=== PATIENT | male | born 1985 | race African-American/Black ===

== ENCOUNTER 2020-08-30 08:54 | Inpatient (IN) | payer MEDICAID, SELFPAY ==
[~2020-08-30] VITALS: Ht 177.8 cm; Wt 71.7 kg
[2020-08-30 09:00] VITALS: BP 120/73
[2020-08-30] MEDS ORDERED: HALOPERIDOL IM 5 MG/ML VIAL IM ONE (09:00)
[2020-08-30] MEDS ORDERED: LORazepam 2 MG/ML VIAL IM/IVP ONE (09:00)
[2020-08-30] MEDS ORDERED: NACL 0.9% 1,000 ML IV ONE (09:00)
[2020-08-30] MEDS ORDERED: diphenhydrAMINE 50 MG/ML VIAL IM ONE (09:00)
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
--- NOTE | 2020-08-30 09:05 | NUR ---
TRANSFERED TO BED 07
--- NOTE | 2020-08-30 09:54 | NUR ---
STRAIGHT CATH PT AND RECEIVED AN OUTPUT OF 200ML OF CLEAR YELLOW URINE.
--- NOTE | 2020-08-30 09:58 | NUR ---
COVID ANTIGEN SWAB COLLECTED AND GIVEN TO PHLEB TECH.
[2020-08-30 10:13] LABS: BASOPHILS # (AUTO) 0.1 K/uL (0.00-0.22); BASOPHILS % (AUTO) 0.8 % (0.0-2.0); EOSINOPHILS # (AUTO) 0.3 K/uL (0-0.4); EOSINOPHILS % (AUTO) 4.3 % (0.0-4.0); HEMATOCRIT 33.9 % (36-52); HEMOGLOBIN 11.3 g/dL (12.0-18.0); LYMPHOCYTES # (AUTO) 1.6 K/uL (2.0-11.5); LYMPHOCYTES % (AUTO) 20.6 % (20.5-51.1); MEAN CORPUSCULAR HEMOGLOBIN 25 pg (27-31); MEAN CORPUSCULAR HGB CONC 33 g/dL (33-37); MEAN CORPUSCULAR VOLUME 74.2 fL (80-94); MONOCYTES # (AUTO) 0.7 K/uL (0.8-1.0); MONOCYTES % (AUTO) 8.7 % (1.7-9.3); NEUTROPHILS # (AUTO) 5.2 K/uL (1.8-7.7); NEUTROPHILS % (AUTO) 65.6 % (42.2-75.2); PLATELET COUNT (AUTO) 338 K/uL (140-450); RED BLOOD CELL COUNT(AUTO) 4.57 MIL/uL (4.20-6.10); RED CELL DISTRIBUTION WIDTH 17.9 % (11.6-13.7); WHITE BLOOD COUNT (AUTO) 7.9 K/uL (4.8-10.8)
[2020-08-30 10:39] LABS: ALBUMIN 3.7 g/dL (3.4-5.0); ANION GAP 12.9 (8-16); ASPARTATE AMINOTRANSFERASE 58 U/L (15-37); CARBON DIOXIDE 26.7 mmol/L (21-32); CHLORIDE 104 mmol/L (98-107); CREATININE 0.8 mg/dL (0.6-1.3); GFR ARICAN-AMERICAN 142 mL/min (>90); GLUCOSE 96 mg/dL (74-106); POTASSIUM 3.6 mmol/L (3.5-5.1); SODIUM SERUM 140 mmol/L (136-145); TOTAL BILIRUBIN 0.5 mg/dL (0.0-1.0); UREA NITROGEN, BLOOD 22 mg/dL (7-18)
[2020-08-30 10:40] LABS: SALICYLATE < 2.8 mg/dL (2.8-20.0)
[2020-08-30 10:41] LABS: ACETAMINOPHEN < 0.5 ug/ml (10-30)
[2020-08-30 10:57] LABS: CANNABINOID, URINE POSITIVE ng/mL (NEG <=50); OPIATE, URINE NEGATIVE ng/mL (NEG <=2000); PHENCYCLIDINE SCREEN,URINE NEGATIVE ng/mL (NEG <=25)
[2020-08-30 10:58] LABS: BARBITURATE, URINE NEGATIVE ng/ml (NEG <=200); BENZODIAZEPINE, URINE NEGATIVE ng/mL (NEG <=200); COCAINE, URINE NEGATIVE ng/mL (NEG <=300)
--- NOTE | 2020-08-30 12:51 | NUR ---
PT SCREAMING AND BEING AGITATED, GOKUL LIMA MADE AWARE.
[2020-08-30] MEDS ORDERED: LORazepam 2 MG/ML VIAL IVP ONE (12:55)
--- NOTE | 2020-08-30 13:15 | NUR ---
PT SHOUTING AND GETTING AGITATED. NEW ORDERS ADDED: ATIVAN 2MG IVP.
--- NOTE | 2020-08-30 13:20 | NUR ---
PT IS SLEEPING COMFORTABLY IN BED. NO DISTRESS NOTED.
--- NOTE | 2020-08-30 15:07 | NUR ---
PT IS CALM, SLEEPING COMFORTABLY. VSS.
--- NOTE | 2020-08-30 17:20 | NUR ---
PT ARRIVED ON UNIT AT THIS TIME FROM ER VIA GURNEY. PT REMAINED IN POSITION THROUGHOUT HIS TRANSFER ONTO UNIT BED. PT DOES NOT RESPOND TO QUESTIONS AND GETS QUICKLY AGITATED WHEN TOUCHED OR MOVED. PT IN STABLE CONDITION, NO DISTRESS NOTED, RESPIRATIONS EVEN AND UNLABORED ON ROOM AIR. PT COMBATIVE AND KICKING WHILE TRYING TO TAKE VITAL SIGNS. VITALS UPON ADMISSION BP 132/70, R 16, P 62, O2 SAT 100%, TEMP 98. IV SITE PATENT AND ASYMPTOMATIC IN R FA 20G. REGULAR DIET. STANDARD ISOLATION. MRSA SWAB DONE. PT OFFERED DINNER. SAFETY MEASURES IN PLACE, BED IN LOW POSITION. WILL CONTINUE TO MONITOR.
--- NOTE | 2020-08-30 17:20 | NUR ---
Patient will be admitted to care of dr. tejeda. Admited to m/s. Will go to room 109b. Belongings list completed. Report to hillary magdaleno.
--- NOTE | 2020-08-30 20:39 | NUR ---
CHECKED ON PT AND PT IS SLEEPING. VISIBLY CHEST RISE NOTED. PT IS ON LEFT LATERAL POSITION. NO SIGNS OF DISTRESS NOTED. WILL CONTINUE TO MONITOR.
--- NOTE | 2020-08-30 22:20 | NUR ---
PT WOKE UP TO ASK FOR FOOD AND BLANKET. NURSE EXPLAINED TO THE PT THAT HE HAS FOOD AT THE BEDSIDE. A BLANKET WAS PROVIDED. PT IS SITTING UP AND EATING IN BED. NO SIGNS OF DISTRESS NOTED. WILL CONTINUE TO MONITOR.
--- NOTE | 2020-08-31 00:01 | NUR ---
PT REFUSED VITALS ASSESSMENT. PT IS IN STABLE CONDITION.
[2020-08-31] MEDS ORDERED: ONDANSETRON 4 MG/2 ML VIAL IM/IVP PRN (00:20)
[2020-08-31] MEDS ORDERED: DOCUSATE SODIUM 100 MG GELCAP PO PRN (00:20)
[2020-08-31] MEDS ORDERED: POTASSIUM CHLORIDE 10 MEQ TABER PO PRN (00:20)
[2020-08-31] MEDS ORDERED: ACETAMINOPHEN 325 MG TAB PO PRN (00:20)
[2020-08-31] MEDS ORDERED: HYDROcodone/APAP 7.5/325 MG 1 TAB PO PRN (00:20)
[2020-08-31 00:52] LABS: CHOL/HDL RATIO 2.7 (1-4.5); FREE T4 (FREE THYROXINE) 1.07 ng/dL (0.76-1.46); MAGNESIUM 1.8 mg/dL (1.8-2.4); PHOSPHORUS 3.2 mg/dL (2.5-4.9); PROTHROMBIN TIME 9.3 secs (10.8-13.4); THYROID STIMULATING HORMONE 0.63 uIU/mL (0.34-3.74)
--- NOTE | 2020-08-31 03:00 | NUR ---
PT IS SLEEPING. VISIBLE CHEST RISE NOTED.
--- NOTE | 2020-08-31 05:05 | NUR ---
PT WOKE UP AND ASKED FOR FOOD AND A SANDWICH AND SODA WAS GIVEN. ASSESSED FOR ANY KNOWN ALLERGIES AND PT STATED THAT HE DOESN'T HAVE ANY KNOWN ALLERGIES. PT INQUIRED ABOUT LEAVING. EDUCATION WAS GIVEN THAT THE MD WILL NEED TO SEE HIM AND MAKE ASSESSMENT ABOUT THIS HOSPITALIZATION. PT IS IN STABLE CONDITION.
--- NOTE | 2020-08-31 05:57 | NUR ---
PT ASKED FOR FLUIDS AND WAS GIVEN TWO JUICES. PT IS AWAKE SO A/O ASSESSMENT WAS ATTEMPTED. PT WAS NONVERBAL WITH EYE CLOSED. WHEN ASKED IF THE PT KNOWS WHY HE WAS BROUGHT TO THE HOSPITAL, PT WAS NONVERBAL WITH EYE CLOSED. TESS POE, IS AT THE BEDSIDE. PT IS LYING SUPINE, BREATHING SPONTANEOUS. THERE IS NO SIGNS OF DISTRESS AT THIS TIME. PT IS NON-COOPERATIVE EVIDENCE BY HIS BEHAVIOR BY NOT ANSWERING QUESTIONS. NO ANGER OR VIOLENT BEHAVIORS NOTED AT THIS TIME. WILL CONTINUE TO MONITOR.
--- NOTE | 2020-08-31 07:16 | NUR ---
RECEIVED REPORT FROM NIGHT NURSE FOR CONTINUITY OF CARE, PT IS STABLE, PT ASLEEP, PT HAS RIGHT FA 20G SALINE LOCK, PT AMBULATORY, SKIN INTACT, BED IN LOW POSITION, SAFETY MEASURES IN PLACE, WILL CONTINUE TO MONITOR
[2020-08-31 08:00] VITALS: BP 110/82
--- NOTE | 2020-08-31 08:48 | NUR ---
PATIENT HAS BEEN SCREENED AND CATEGORIZED LOW NUTRITION RISK. PATIENT WILL BE SEEN WITHIN 7 DAYS OF ADMISSION. 09/06/[address]
--- NOTE | 2020-08-31 09:40 | NUR ---
PT REFUSING MORNING ASSESSMENT, PT IS STABLE, NO SIGNS OF DISTRESS NOTED, RESPIRATIONS ARE EVEN AND UNLABORED ON ROOM AIR, WILL CONTINUE TO MONITOR.
--- NOTE | 2020-08-31 11:29 | NUR ---
PT SLEEPING IN BED, NO SIGNS OF DISTRESS NOTED, RESPIRATIONS ARE EVEN AND UNLABORED ON ROOM AIR, PT IS STABLE, 1:1 SITTER OUTSIDE ROOM, WILL CONTINUE TO MONITOR.
--- NOTE | 2020-08-31 12:35 | NUR ---
PT VOMITED X1. PT DENIES NAUSEA. ENCOURAGED TO SIT UP WHEN EATING. PT NEEDS REINFORCEMENT. NO SIGNS OF ASPIRATION NOTED. NOT IN RESPIRATORY DISTRESS. SAFETY MEASURES INITIATED. FALL PRECAUTION IMPLEMENTED. 1:1 SITTER AT BEDSIDE.
--- NOTE | 2020-08-31 15:10 | NUR ---
PROVIDED PT IN BETWEEN MEALS. ENCOURAGED TO INCREASE FLUID. STILL ON 1:1 SITTER. NO SIGNS OF AGITATIONS. ALL NEEDS ATTENDED.
--- NOTE | 2020-08-31 15:56 | NUR ---
SOCIAL WORK NOTE: Patient's Orientation Person Information Provided By PATIENT Comments SW MET WITH PATIENT AT BEDSIDE. PATIENT WAS AGITATED AND WAS NOT ORIENTED TO SITUATION, TIME, OR PLACE. PATIENT REFUSED TO COMPLETE ASSESSMENT WITH SW. PATIENT WAS UNCOOPERATIVE AND YELLED OBSCENITIES TO SW. SW LEFT HOMELESS RESOURCES, SUBSTANCE ABUSE RESOURCES, AND FOOD PANTRY RESOURCES AT BEDSIDE. Healthcare Power of Specialty Person No Does Patient Have a POLST No Factors/Needs Psych Placement/Referral Discharge Plan Comments TENTATIVE DISCHARGE PLAN IS FOR PATIENT TO BE DISCHARGED TO PSYCHIATRIC FACILITY. DC Plan Status Initiated Addendum: 09/04/20 at 1314 by Armani BENOIT MIKKI LEFT INCAPACITY DECLARATION WITH CHARGE NURSE ANGEL FOR DR. ALFARO TO SIGN REGARDING [facility] APPLICATION.
[2020-08-31 16:00] VITALS: BP 130/85
--- NOTE | 2020-08-31 17:09 | NUR ---
[facility] has only received patient's facesheet and 5150 hold. Need rest of packet for placement.
--- NOTE | 2020-08-31 19:10 | NUR ---
ENDORSE PT TO NIGHT NURSE FOR CONTINUITY OF CARE, PT IS STABLE
--- NOTE | 2020-08-31 19:15 | NUR ---
Call Center highway engineer is still aware of patient and is pending complete packet to begin working on bed placement.
--- NOTE | 2020-08-31 19:20 | NUR ---
RECEIVED BEDSIDE REPORT FROM DAY SHIFT NURSE. PATIENT IS SLEEPING RESPIRATION EVEN UNLABORED ON ROOM AIR. NO DISTRESS NOTED. SKIN IS WARM AND DRY. PLAN OF CARE WAS DISCUSSED. ALL SAFETY MEASURES IN PLACE. BED IS AT LOW POSITION. WILL CONTINUE TO MONITOR.
[2020-08-31] MEDS: OLANZapine 5 MG TAB PO SCH (21:00)
--- NOTE | 2020-08-31 21:00 | NUR ---
ALL SCHEDULED MEDS WERE GIVEN PER ORDER. WILL CONTINUE TO MONITOR.
--- NOTE | 2020-08-31 22:32 | NUR ---
PATIENT IS SCREAMING ASKING FOR FOOD. PROVIDED SANDWICH AND JUICE. WILL CONTINUE TO MONITOR.
[2020-09-01] VITALS: BP 112/63
--- NOTE | 2020-09-01 00:34 | NUR ---
VITALS WERE TAKEN. PATIENT IN STABLE CONDITION. NO DISTRESS NOTED. WILL CONTINUE TO MONITOR. SITTER AT BEDSIDE
--- NOTE | 2020-09-01 04:00 | NUR ---
CHECKED PATIENT. PATIENT SLEEPING RESPIRATION EVEN UNLABORED ON ROOM AIR. SITTER AT BEDSIDE
--- NOTE | 2020-09-01 05:45 | NUR ---
PT REFUSED BLOOD DRAWN. EDUCATED THE RISK AND BENEFITS PATIENT REFUSED X2.
--- NOTE | 2020-09-01 07:11 | NUR ---
ENDORSED PATIENT TO DAY SHIFT NURSE FOR CONTINUITY OF CARE
--- NOTE | 2020-09-01 07:12 | NUR ---
RECEIVED REPORT FROM PM RNRENETTA. PT IS HOMELESS. CC: SI, GRAVELY DISABLE. DX: SI, GRAVELY DISABLE. HX: UNABLE TO COLLECT PMHX, +AMPHETAMINES, + CANNABINOIDS. NKA. PT IS ON /50 WITH 1:1 SITTER. IV: LT FA 20G SL. PT IS ON A REGULAR DIET. SKIN IS INTACT. PLAN: PLACEMENT.
[2020-09-01 08:00] VITALS: BP 111/54
--- NOTE | 2020-09-01 08:18 | NUR ---
Change of shift reoport given. Have only received minimal amount of information for intake regarding patient. Please fax intake with complete information to [phone] to complete the process for assistance with bed placement.
[2020-09-01] MEDS: OLANZapine 5 MG TAB PO SCH (08:57)
--- NOTE | 2020-09-01 09:00 | NUR ---
PASSED MEDICATIONS TO PT. PT WAS ASLEEP IN BED. RESPIRATIONS ARE EVEN AND UNLABORED. NO SIGNS OF DISTRESS. NO COMPLAINTS OF: PAIN, NAUSEA, CHEST PAIN, OR SOB. PT RETURNED BACK TO SLEEP.
--- NOTE | 2020-09-01 10:00 | NUR ---
Per Ronal Charge nurse , will need transfer order in the AM , at this time Call center will continue to observe for placement assistance after orders are done by .
--- NOTE | 2020-09-01 10:15 | NUR ---
PT WOKE UP, AGITATED. STARTED YELLING, INCOHERENT SENTENCES. SITTER BROUGHT FOOD TO PT. PT IS NOW PACING THE ROOM. SPECIAL PROGRAMS DIRECTOR AWARE THAT PT IS AGITATED.
[2020-09-01] MEDS ORDERED: diphenhydrAMINE 50 MG/ML VIAL IM SCH (12:45)
[2020-09-01] MEDS ORDERED: LORazepam 2 MG/ML VIAL IM/IVP PRN (12:45)
[2020-09-01] MEDS ORDERED: HALOPERIDOL IM 5 MG/ML VIAL IM SCH (12:45)
--- NOTE | 2020-09-01 13:19 | NUR ---
COMPLETED ROUND. PT IS SLEEPING IN BED. VISIBLE RISE AND FALL OF CHEST. RESPIRATIONS ARE EVEN AND UNLABORED. NO SIGNS OF DISTRESS.
--- NOTE | 2020-09-01 14:45 | NUR ---
COMPLETED ROUND. PT IS LAYING DOWN IN BED. NO SIGNS OF DISTRESS. VISIBLE RISE AND FALL OF CHEST. RESPIRATIONS ARE EVEN AND UNLABORED. NO COMPLAINTS OF: PAIN, CHEST PAIN, SHORTNESS OF BREATH, OR NAUSEA.
[2020-09-01 16:00] VITALS: BP 111/54
--- NOTE | 2020-09-01 16:00 | NUR ---
PT IS RESTING IN BED. RESPIRATIONS ARE EVEN AND UNLABORED. NO SIGNS OF DISTRESS.
--- NOTE | 2020-09-01 19:10 | NUR ---
TRANSFER OF CARE TO PM RNANA PAULA. PT IS RESTING IN BED. RESPIRATIONS ARE EVEN AND UNLABORED. NO SIGNS OF DISTRESS.
--- NOTE | 2020-09-01 19:15 | NUR ---
RECEIVED PT IN STABLE CONDITION FROM AM NURSE. MED SURG PT. WITH 1:1 SITTER IN ATTENDANCE. NO C/O ANY DISCOMFORT NOR PAIN NOTED. BED ON LOW POSITION. SIDE RAILS UP X2. WILL CONTINUE TO CLOSELY MONITOR . PT REFUSED LAB DRAW THIS AM. WILL REORDER FOR TOMORROW.
--- NOTE | 2020-09-01 21:09 | NUR ---
PT YELLING AND VERY AGITATED. GIVEN SOME APPLE JUICE AND ATIVAN 1MG IM ONCE PER MD ORDER. WILL CONTINUE TO MONITOR.
--- NOTE | 2020-09-01 23:00 | NUR ---
CHECKED ON PT. SLEEPING WELL AT THIS TIME. NO S/S OF ANY DISCOMFORT.
[2020-09-02] VITALS: BP 112/56
--- NOTE | 2020-09-02 01:00 | NUR ---
MADE ROUNDS. PT SLEEPING. NO S/S OF ANY DISCOMFORT NOTED. WILL CONTINUE TO MONITOR.
[2020-09-02] MEDS: diphenhydrAMINE 50 MG/ML VIAL IM PRN (01:41)
--- NOTE | 2020-09-02 01:41 | NUR ---
PT WOKE UP AND AGITATED. BENADRYL 50 MG IM GIVEN PRN ORDER. WILL CONTINUE TO MONITOR.
[2020-09-02] MEDS: HALOPERIDOL IM 5 MG/ML VIAL IM PRN (04:40)
--- NOTE | 2020-09-02 04:40 | NUR ---
PT AGITATED . HALDOL 5MG IM GIVEN. PROVIDED WITH SOME JUICE. WILL CONTINUE TO MONITOR.
[2020-09-02 06:05] LABS: BASOPHILS # (AUTO) 0.1 K/uL (0.00-0.22); BASOPHILS % (AUTO) 0.8 % (0.0-2.0); EOSINOPHILS # (AUTO) 0.3 K/uL (0-0.4); EOSINOPHILS % (AUTO) 4.2 % (0.0-4.0); HEMATOCRIT 35.3 % (36-52); HEMOGLOBIN 11.6 g/dL (12.0-18.0); LYMPHOCYTES # (AUTO) 1.6 K/uL (2.0-11.5); MEAN CORPUSCULAR HEMOGLOBIN 24 pg (27-31); MEAN CORPUSCULAR HGB CONC 33 g/dL (33-37); MEAN CORPUSCULAR VOLUME 74.4 fL (80-94); MONOCYTES # (AUTO) 0.7 K/uL (0.8-1.0); MONOCYTES % (AUTO) 9.4 % (1.7-9.3); NEUTROPHILS # (AUTO) 5.2 K/uL (1.8-7.7); NEUTROPHILS % (AUTO) 65.6 % (42.2-75.2); PLATELET COUNT (AUTO) 333 K/uL (140-450); RED BLOOD CELL COUNT(AUTO) 4.74 MIL/uL (4.20-6.10); RED CELL DISTRIBUTION WIDTH 17.9 % (11.6-13.7); WHITE BLOOD COUNT (AUTO) 7.9 K/uL (4.8-10.8)
[2020-09-02 06:19] LABS: ANION GAP 10.2 (8-16); CREATININE 0.8 mg/dL (0.6-1.3); POTASSIUM 4.2 mmol/L (3.5-5.1)
[2020-09-02 06:24] LABS: MAGNESIUM 1.7 mg/dL (1.8-2.4); PHOSPHORUS 3.3 mg/dL (2.5-4.9)
--- NOTE | 2020-09-02 07:30 | NUR ---
RECEIVED REPORT FROM CHAIN MAKER RN FOR CONTINUITY OF CARE. PATIENT RESTING IN BED, ASLEEP, VISIBLE CHEST RISE AND FALLS. 1:1 SITTER. NO ACUTE DISTRESS NOTED. SAFETY MEASURES IN PLACE, WILL CONTINUE TO MONITOR.
--- NOTE | 2020-09-02 07:30 | NUR ---
PT STILL WITH 1;1 SITTER. ENDORSED PT IN STABLE CONDITION TO AM NURSE.
--- NOTE | 2020-09-02 08:00 | NUR ---
PATIENT REFUSED TO BE CHECKED ON VITAL SIGNS. EXPLAINED TO THE PATIENT THAT REASON TO HAVE VITAL SIGNS CHECKED, BUT INSIST REFUSED. WILL INFORM .
[2020-09-02] MEDS: OLANZapine 5 MG TAB PO SCH ×2 (08:23→21:29)
--- NOTE | 2020-09-02 08:23 | NUR ---
SCHEDULED MORNING MEDICATION GIVEN. PATIENT DENIES PAIN OR DISCOMFORT. PATIENT REMAIN CALM AT THIS TIME. SAFETY MEASURES IN PLACE, 1:1 SITTER. WILL CONTINUE TO MONITOR.
--- NOTE | 2020-09-02 08:42 | NUR ---
[facility] working on placement at this time.
--- NOTE | 2020-09-02 11:12 | NUR ---
PATIENT STAYED IN HIS BED, RIGHT LATERAL POSITION, HEAD COVERED WITH BLANKET. NO ACUTE DISTRESS NOTED AT THIS TIME, 1:1 SITTER. WILL CONTINUE TO MONITOR.
--- NOTE | 2020-09-02 15:02 | NUR ---
PATIENT SLEEPING IN BED, 1:1 SITTER, NO ACUTE DISTRESS NOTED. WILL CONTINUE TO MONITOR.
--- NOTE | 2020-09-02 15:50 | NUR ---
PATIENT IS AGITATED AND YELLING WANT TO GO HOME. ASKED WHERE HE LIVES, HE STATED THAT HE LIVES IN [facility]. INFORMED DR. ALFARO. PATIENT IS STILL 5150 HOLD. HE WILL PERSONAL CHECK THE PATIENT LATER TODAY. OFFERED PATIENT HALDOL, PATIENT REFUSED, OFFERED JUICE. PATIENT WENT BACK TO THE BED. WILL CONTINUE TO MONITOR.
--- NOTE | 2020-09-02 16:02 | NUR ---
PATIENT REFUSED TO HAVE VITAL SIGNS CHECKED AGAIN.
--- NOTE | 2020-09-02 16:39 | NUR ---
PATIENT YELLING AND WANTED TO GO HOME. INFORMED PATIENT NEED TO BE SEEN BY THE PSYCHIATRIST. PROVIDED JUICE AND JELLO, PATIENT WENT BACK TO HIS BED.
--- NOTE | 2020-09-02 19:30 | NUR ---
ENDORSED PATIENT TO SILK OPENER RN FOR CONTINUITY OF CARE.
--- NOTE | 2020-09-02 19:33 | NUR ---
RECEIVED PT FROM OMI PATEL PT IS AAOX2 FOLLOW COMMANDS RESTING ON BED NOT AGITATION AT THIS TIME REMAIN QUIET SITTER AT BED SIDE, NOT IV ACCES PT REFUSED AND RENNY MOORE AWARE INITIAL ASSESSMENT DONE
--- NOTE | 2020-09-02 21:40 | NUR ---
PT AWAKE TAKEN HIS MEDICATION COOPERATIVE, SITTER AT BED SIDE LL TIME, SNACK IS GIVEN PT HAS A GOOD APPETITE REMAIN QUIET AT THIS TIME, VOIDING WELL
[2020-09-03] VITALS: BP 135/81
--- NOTE | 2020-09-03 | NUR ---
PT HAS BEEN MONITORING CLOSE SITTER AST BED SIDE NOT DISTRESS NOTED
--- NOTE | 2020-09-03 02:00 | NUR ---
PT AMBULATES TOT HE RESTROOM VOIDING WELL QUIET CAME BACK TO BED, SITTER AT BED SIDE
--- NOTE | 2020-09-03 04:00 | NUR ---
LINEN CHANGED BUT PT REFUSED TO BE CLEAN, COME BACK TO BED NOT DISTRESS NOTED SITTER 1:1
--- NOTE | 2020-09-03 06:39 | NUR ---
PT ASK FOR FOOD COOPERATIVE TO FOLLOW COMMANDS SITTER AT BED SIDE NOT DISTRESS AT THIAS TIME
--- NOTE | 2020-09-03 07:05 | NUR ---
RECEIVED PT FROM [facility] SHIFT NURSEMARGARET, PT IS AWAKE AND WALKING INSIDE THE BEDROOM, SITTER ON BEDSIDE, NO IV LINE NOTED, PT IS REFUSING TO HAVE AN INSERTION, SAFETY CHECK DONE, SUICIDE PRECAUTION IN PLACE, WILL MONITOR PT.
[2020-09-03 08:00] VITALS: BP 119/65
[2020-09-03] MEDS: OLANZapine 5 MG TAB PO SCH ×2 (08:09→21:07)
--- NOTE | 2020-09-03 08:09 | NUR ---
PT WAS GIVEN THE SCHEDULED AM MEDIATIONS, PT IS SHOUTING BUT WAS ABLE TO DRINK THE ORAL TABLETS, MEDICAL STUDENT ON THE BEDSIDE, SITTER ON THE BEDSIDE, WILL MONITOR PT.
--- NOTE | 2020-09-03 10:15 | NUR ---
SECURITY WAS CALLED BECAUSE PT WALKED OUT OF HIS ROOM AND IS TRYING TO SNATCH THINGS IN THE NURSING STATION. PT WAS ASSISTED BACK TO ROOM.
--- NOTE | 2020-09-03 10:17 | NUR ---
DISCHARGE PLANNING: MIKKI CONTACTED REN FROM [facility] [phone] TO FOLLOW UP ON PSYCH PLACEMENT. PER ZENON MCCLURE IS WORKING ON FINDING PLACEMENT FOR PATIENT. REN STATED THAT SHE WILL CALL AMARA DALTON. MIKKI WILL FOLLOW UP NEEDED. Addendum: 09/09/20 at 0833 by Armani BENOIT MIKKI CONTACTED CHARGE NURSE DALLAS REGARDING INCAPACITY DECLARATION. PER DALLAS, DOCUMENT WAS SIGNED. MIKKI INFORMED [facility] WORKER KIMBERLY. Addendum: 09/09/20 at 1008 by Armani Wolff MIKKI FAXED UPDATED 0482 TO CALL [facility] [phone]. MIKKI CONTACTED [facility] [phone] AND SPOKE TO ZENON AND VERIFIED THAT UPDATED 1587 WAS RECEIVED. ZENON STATED HE WILL CONTINUE TO SEEK PLACEMENT FOR PATIENT.
[2020-09-03] MEDS: MAGNESIUM OXIDE 400 MG TAB PO SCH (10:31)
--- NOTE | 2020-09-03 10:31 | NUR ---
PT WAS GUIVEN THE MAGNESIUM OXIDE ORAL TABLETS 800MG FOR MG LEVEL OF 1.7, WILL MONITOR PT.
--- NOTE | 2020-09-03 10:39 | NUR ---
Packet referred to [facility] Cunningham.
--- NOTE | 2020-09-03 10:59 | NUR ---
Packet referred to [facility].
--- NOTE | 2020-09-03 13:34 | NUR ---
PT IS CALM AND SLEEPING NOW. SITTER ON BEDSIDE.
[2020-09-03 16:00] VITALS: BP 119/67
--- NOTE | 2020-09-03 17:23 | NUR ---
PT IS WALKING AROUND IN THE ROOM AND KEEPS SAYING THAT HE WANTS TO LEAVE, SITTER ON BEDSIDE.
--- NOTE | 2020-09-03 19:25 | NUR ---
RECEIVED PT AAOX1 TO 2 - HE RESPONDING WHEN I CALL HIS NAME . CAN FOLLOW SIMPLE COMMAND . NO IV ACCESS . AMBULATORY , NO S/SX OF ACUTE DISTRESS NOTED . POC DISCUSSED BUT POOR UNDERSTANDING DUE TO MENTAL STATUS . ON 51 50 - HOLD - 1 :1 SITTER . WILL CONT. TO MONITOR
--- NOTE | 2020-09-03 19:25 | NUR ---
ENDORSED PT TO THERAPY TECH NURSEDINO FOR CONTINUITY OF CARE.
--- NOTE | 2020-09-03 22:00 | NUR ---
ON 1 :1 SITTER , NO S/SX OF ACUTE DISTRESS NOTED .
[2020-09-04] VITALS: BP 123/85
--- NOTE | 2020-09-04 | NUR ---
MADE ROUNDS , NO S/SX OF ACUTE DISTRESS NOTED . ON 1 : 1 SITTER
--- NOTE | 2020-09-04 02:00 | NUR ---
SLEEPING . ON 1 ; 1SITTER
--- NOTE | 2020-09-04 04:00 | NUR ---
AWAKE , WALKS IN THE [address] WAY - THEN BACK TO ROOM . ON 1: 1 SITTER .
--- NOTE | 2020-09-04 05:00 | NUR ---
WALKS IN THE [address] WAY THEN BACK TO ROOM - 1; 1 SITTER
--- NOTE | 2020-09-04 06:00 | NUR ---
STANDING INSIDE THE ROOM . ON 1: 1 SITTER .
--- NOTE | 2020-09-04 07:25 | NUR ---
ENDORSED TO AM SHIFT - PT - STABLE - ON 1: 1 SITTER
--- NOTE | 2020-09-04 07:25 | NUR ---
RECEIVED REPORT FROM LACQUERER AM FOR CONTINUITY OF CARE. PT IS STABLE, PACING IN ROOM. UNDER 1;1 SUPERVISION. WILL CONTINUE WITH POC.
[2020-09-04 08:00] VITALS: BP 136/88
--- NOTE | 2020-09-04 08:15 | NUR ---
PT IS AWAKE AND ORIENTED X 1 SELECTIVELY MUTE, MOMENTS OF PACING IN THE ROOM, STANDING BY DOOR WAY AND YELLING AND CURSING. PT WAS REDIRECTED. PT FOCUSED ON BEING DISCHARGED "I WANT TO GET OUT HERE, I DON'T WANT TO BE HERE." PT WAS EDUCATED ON EFFECTIVE COMMUNICATION AND ON HIS CURRENT STATUS WHILE HOSPITALIZED. PT. DID NOT RESPOND AND HAD NO MORE QUESTIONS. TOLERATED PO MEDICATION WITH NO PROBLEMS. REFUSED PHYSIAL ASSESSMENT DENIES ANY CONSTIPATION. NO IV ACCESS DUE TO REFUSING. V/S: 97.6, 68, 18, 136/88, 99% RA PAIN 0/10. WILL CONTINUE WITH POC.
[2020-09-04] MEDS: OLANZapine 5 MG TAB PO SCH ×2 (08:30→20:27)
[2020-09-04] MEDS: MAGNESIUM OXIDE 400 MG TAB PO SCH (08:30)
--- NOTE | 2020-09-04 10:30 | NUR ---
LAYING IN BED , HAS MOMENTS OF WALKING AROUND IN BED AND STANDING AT DOORWAY HOWEVER NO YELLING. REMAINS UNDER 1:1 SUPERVISION. NO DTO/DTS
--- NOTE | 2020-09-04 12:30 | NUR ---
PT IS AWAKE ATE 100 OF LUNCH AND REQUESTING FOR MORE FOOD. IN NO DISTRESS HAS MOMENTS OF PACING IN ROOM. SOMETIMES YELLING HOWEVER REDIRECTABLE REMAINS UNDER 1:1 SUPERVISION.
[2020-09-04] MEDS: HALOPERIDOL IM 5 MG/ML VIAL IM PRN (13:37)
[2020-09-04] MEDS: diphenhydrAMINE 50 MG/ML VIAL IM PRN (13:37)
--- NOTE | 2020-09-04 14:05 | NUR ---
PT HAS EPISODE OF AGITATION CHARACTERIZED BY YELLING SHOUTING AT STAFF, "I WANT TO GET THE FUCK OUT OF HER." PT LEAVING THE ROOM AND DIFFICULT TO REDIRECT BACK TO ROOM. REQUESTING ADDITIONAL FOOD ALTHOUGH SUPPLEMENT HAS BEEN GIVEN PT WAS GIVE HALDOL AND BENADRYL AT 1330
[2020-09-04 16:00] VITALS: BP 116/72
--- NOTE | 2020-09-04 16:50 | NUR ---
LAYING IN BED LAUGHING AND TALKING TO SELF AT TIMES NO DTO/ DTS REMAINS ON 1;1
--- NOTE | 2020-09-04 17:13 | NUR ---
Intake information has been sent to the following facilities for possible bed placement. [facility]. Will keep facility updated with any information
--- NOTE | 2020-09-04 18:50 | NUR ---
ATE 100% OF DINNER. REMAINS ON 1:1 SUPERVISION DOCTOR HERE WITH PT.
--- NOTE | 2020-09-04 19:25 | NUR ---
RECEIVED REPORT AND CONTINUITY OF CARE FROM AM NURSE. UPON PHYSICAL ASSESSMENT, PT IS A/OX2, GCS 15, HEAD IS ROUND, NORMOCEPHALIC, FACE IS UNIFORMED, SYMMETRICAL, ALIGNED EYEBROWS AND SMILE, PMMM, SCLERA WHITE, PERRL. TRACHEA IS PLACE IN THE MIDLINE OF THE NECK, NO JVD PRESENT. CHEST IS SYMMETRICAL, LUNGS ARE CTAX4, ON INSPIRATION AND EXPIRATION. S1, S2 HEART TONES NOTED. BOWEL TONES ARE ACTIVE IN FOUR QUADRANTS. ABD IS FLAT AND NONTENDER. SKIN IS SMOOTH, WARM, DRY, AND INTACT. NAILS ARE INTACT, CAP REFILL IS LESS THAN 3 SECONDS, NO CLUBBING OR CYANOSIS NOTED. EQUAL AND BILATERAL PEDAL PULSES NOTED. ORIENTED PT TO STAFF. 1:1 SITTER AT BEDSIDE.
--- NOTE | 2020-09-04 19:30 | NUR ---
REPORT GIVEN TO AUTOMATIC SCREWMAKER RN FOR CONTINUITY OF CARE. PT IN HIS ROOM AT THIS TIME MOMENTS OF YELLING AT THIS TIME.
--- NOTE | 2020-09-04 20:27 | NUR ---
OFFERED SCHEDULED SCHEDULED ZYPREXA TO THE PT BUT HE REFUSED. PT REFUSED TO ACKNOWLEDGE STAFF PRESENCE AND THAT MEDICATION DUE FOR HIM TO TAKE. PT IS LYING IN BED. NO SIGNS OF DISTRESS OR EMOTIONAL DISTRESS AT THIS TIME. 1:1 SITTER AT BEDSIDE.
--- NOTE | 2020-09-04 23:25 | NUR ---
PT IS SLEEPING. NO SIGNS OF DISTRESS NOTED. 1:1 AT BEDSIDE.
[2020-09-05] MEDS: diphenhydrAMINE 50 MG/ML VIAL IM PRN (00:35)
[2020-09-05] MEDS: HALOPERIDOL IM 5 MG/ML VIAL IM PRN (00:36)
--- NOTE | 2020-09-05 00:43 | NUR ---
PT WALKED TO THE ROOM DOOR AND STARTED YELLING. SECURITY AND NUISANCE ANIMAL DAMAGE CONTROL AGENT WAS CALLED TO THE UNIT. NUISANCE ANIMAL DAMAGE CONTROL AGENT HELPED TO MEDICATE THE PATIENT BY ADMINISTERED BENADRYL AND HALDOL IM IN THE LEFT DELTOID. PT TOLERATED MEDICATION WELL. 1:1 SITTER AT BEDSIDE.
--- NOTE | 2020-09-05 03:17 | NUR ---
PT IS SLEEPING. VISIBLE CHEST RISE NOTED. 1:1 SITTER AT BEDSIDE.
--- NOTE | 2020-09-05 05:53 | NUR ---
PT IS SLEEPING. NO SIGNS OF DISTRESS NOTED.
--- NOTE | 2020-09-05 07:20 | NUR ---
RECEIVED REPORT FROM NIGHT NURSE. PATIENT IS SITTING IN BED READING A MAGAZINE. AWAKE AND ALERT. RESPONDING TO NURSING STAFF WELL. NO BEHAVIOR PROBLEMS AT THIS TIME. RESP EVEN AND UNLABORED ON ROOM AIR. NO IV ACCESS. DENIES PAIN. SITTER AT BEDSIDE. PLAN OF CARE DISCUSSED WITH PATIENT. PATIENT VERBALIZED UNDERSTANDING. WILL CONTINUE TO MONITOR.
[2020-09-05 08:00] VITALS: BP 108/55
[2020-09-05] MEDS: MAGNESIUM OXIDE 400 MG TAB PO SCH (08:29)
[2020-09-05] MEDS: OLANZapine 5 MG TAB PO SCH ×2 (08:29→20:58)
--- NOTE | 2020-09-05 08:35 | NUR ---
PATIENT IS PACING IN THE ROOM SCREAMING AND YELLING INCOHERENTLY. PATIENT WAS REDIRECTED BACK TO BED AND ABLE TO FOLLOW COMMANDS. PATIENT WAS ASKING WHEN HE WOULD BE RELEASED, PATIENT WAS MADE AWARE A PLACEMENT IS BEING LOOKED INTO. PATIENT VERBALIZED UNDERSTANDING. PATIENT COMPLIED WITH MORNING ROUTINE MEDICATIONS. PATIENT IS IN BED EATING BREAKFAST. DENIED OF PAIN AT THIS TIME. RESP EVEN AND UNLABORED. SITTER BY BEDSIDE. WILL CONTINUE TO MONITOR.
--- NOTE | 2020-09-05 11:20 | NUR ---
PATIENT SLEEPING IN BED. NO BEHAVIOR PROBLEMS AT THIS TIME. SITTER BY BEDSIDE. WILL CONTINUE TO MONITOR.
--- NOTE | 2020-09-05 13:02 | NUR ---
PATIENT IS AWAKE, ALERT. FINISHED LUNCH. FLUIDS GIVEN PER REQUEST. RESP EVEN AND UNLABORED ON ROOM AIR. ABLE TO MAKE NEEDS KNOWN. NO VERBAL OUTBURSTS AT THIS TIME. DENIED ANY SUICIDAL IDEATIONS. WILL CONTINUE TO MONITOR. SITTER BY BEDSIDE.
--- NOTE | 2020-09-05 15:25 | NUR ---
MAGAZINES PROVIDED TO PATIENT FOR DISTRACTION. PATIENT IN BED AWAKE AND ALERT. ABLE TO FOLLOW COMMANDS. DENIED OF PAIN OR DISTRESS. NO BEHAVIORAL PROBLEMS NOTED. SITTER BY BEDSIDE. WILL CONTINUE TO MONITOR.
[2020-09-05 16:00] VITALS: BP 121/74
--- NOTE | 2020-09-05 18:33 | NUR ---
PATIENT IN BED SLEEPING. CHEST RISING NOTED. SITTER BY BEDSIDE. WILL CONTINUE TO MONITOR.
--- NOTE | 2020-09-05 19:20 | NUR ---
ENDORSED PATIENT TO NIGHT NURSE. PATIENT IN STABLE CONDITION.
--- NOTE | 2020-09-05 19:21 | NUR ---
RECD. RESTING IN BED, SLEEPING BUT EASILY AROUSABLE. A/OX3. DISHEVELED, UNKEMPT, UNABLE TO CARE FOR HIMSELF. RESPIRATION EVEN AND UNLABORED. NO IV LINE. DENIES OF PLAN OF HURTING SELF OR OTHERS. WILL CONTINUE TO MONITOR BEHAVIOR FOR SAFETY BEING THE NURSE SITTER FOR THE SHIFT. DENIES PAIN 0/10.
--- NOTE | 2020-09-05 20:00 | NUR ---
Patient's Plan of Care was discussed and reviewed with ANESTHESIOLOGIST ATTENDING: ALEXANDER GUTIÉRREZ
[2020-09-05] MEDS: DIVALPROEX 250 MG TABEC PO SCH (20:58)
--- NOTE | 2020-09-05 20:58 | NUR ---
DUE PO MEDICATIONS GIVEN. COOPERATIVE. WENT BACK TO SLEEP AFTER TAKING MEDS.
--- NOTE | 2020-09-05 21:55 | NUR ---
Spoke with RN on floor regarding updated hold. Once received intake will be sent to [facility] for possible bed placement
--- NOTE | 2020-09-05 22:00 | NUR ---
STILL SLEEPING COMFORTABLY.
--- NOTE | 2020-09-05 22:40 | NUR ---
WOKE UP, AMBULATED NEAR DOOR. REQUESTED FOR JUICE. INSTRUCTED TO GO BACK TO BED. BEDDINGS CHANGED. NEW GOWN GIVEN. COOPERATIVE. OCCASIONALLY SINGS IN BED.
[2020-09-06] VITALS: BP 115/66
--- NOTE | 2020-09-06 00:15 | NUR ---
AWAKE IN BED, OCCASIONALLY LAUGHS. NO NOTED AGITATION.
--- NOTE | 2020-09-06 01:00 | NUR ---
IN BED, AWAKE. NO AGITATION NOTED.
--- NOTE | 2020-09-06 03:00 | NUR ---
STILL SLEEPING COMFORTABLY.
--- NOTE | 2020-09-06 03:40 | NUR ---
WENT OUT OF BED AND OUTSIDE OF ROOM, ASSISTED BACK TO BED, WENT TO BR AND VOIDED.
--- NOTE | 2020-09-06 04:30 | NUR ---
SITTING ON BED, TALKING NONSENSE, MUMBLING WORDS.
--- NOTE | 2020-09-06 06:00 | NUR ---
DID NOT GO TO SLEEP EVEN TOLD TO DO SO. SITS ON BED THEN AMBULATE INSIDE THE ROOM.
--- NOTE | 2020-09-06 07:00 | NUR ---
NO AGITATION NOTED DURING SHIFT BUT DID NOT SLEEP MUCH. CONDITION REMAIN STABLE. SAFETY MAINTAINED.
--- NOTE | 2020-09-06 07:05 | NUR ---
RECEIVED PATIENT FROM NIGHT NURSE. PATIENT AWAKE, ALERT AND PACING IN HIS ROOM. INCOHERENT MUMBLING NOTED. NO NOTED ACUTE DISTRESS AT THIS TIME. PATIENT ABLE TO FOLLOW COMMANDS AND ABLE TO MAKE NEEDS KNOWN. NO AGGRESSIVE BEHAVIORS AT THIS TIME. SITTER AT BEDSIDE. PLAN OF CARE DISCUSSED, PATIENT VERBALIZED UNDERSTANDING. WILL CONTINUE TO MONITOR.
--- NOTE | 2020-09-06 07:05 | NUR ---
ENDORSED TO AM SHIFT NURSE FOR CONTINUITY OF CARE. NEW SITTER MONITORING PATIENT NEAR DOOR.
--- NOTE | 2020-09-06 07:48 | NUR ---
(09/06/20) RD INITIAL ASSESSMENT COMPLETED PLEASE REFER TO NUTRITION ASSESSMENT UNDER CARE ACTIVITY FOR ESTIMATED NUTRITIONAL NEEDS. RD RECOMMENDATIONS: 1. CONTINUE ON REGULAR DIET TOLERATED. 2. CONSULT RDN PRN. 3. RD WILL F/U 5-7 DAYS; LOW RISK. ANOOP PAULA MS, RDN
[2020-09-06 08:00] VITALS: BP 108/60
[2020-09-06] MEDS: DIVALPROEX 250 MG TABEC PO SCH ×2 (08:12→20:46)
[2020-09-06] MEDS: MAGNESIUM OXIDE 400 MG TAB PO SCH ×2 (08:12→09:00)
[2020-09-06] MEDS: OLANZapine 5 MG TAB PO SCH ×2 (08:13→20:46)
[2020-09-06 09:06] LABS: BASOPHILS # (AUTO) 0.1 K/uL (0.00-0.22); BASOPHILS % (AUTO) 0.8 % (0.0-2.0); EOSINOPHILS # (AUTO) 0.5 K/uL (0-0.4); EOSINOPHILS % (AUTO) 5.2 % (0.0-4.0); HEMATOCRIT 34.5 % (36-52); HEMOGLOBIN 11.5 g/dL (12.0-18.0); LYMPHOCYTES # (AUTO) 2.1 K/uL (2.0-11.5); LYMPHOCYTES % (AUTO) 22.1 % (20.5-51.1); MEAN CORPUSCULAR HEMOGLOBIN 25 pg (27-31); MEAN CORPUSCULAR HGB CONC 33 g/dL (33-37); MEAN CORPUSCULAR VOLUME 73.6 fL (80-94); MONOCYTES # (AUTO) 1.2 K/uL (0.8-1.0); NEUTROPHILS # (AUTO) 5.8 K/uL (1.8-7.7); NEUTROPHILS % (AUTO) 59.9 % (42.2-75.2); PLATELET COUNT (AUTO) 334 K/uL (140-450); RED BLOOD CELL COUNT(AUTO) 4.69 MIL/uL (4.20-6.10); RED CELL DISTRIBUTION WIDTH 18.1 % (11.6-13.7); WHITE BLOOD COUNT (AUTO) 9.7 K/uL (4.8-10.8)
[2020-09-06 09:19] LABS: ANION GAP 14.2 (8-16); CARBON DIOXIDE 28.1 mmol/L (21-32); CREATININE 0.8 mg/dL (0.6-1.3); POTASSIUM 4.3 mmol/L (3.5-5.1)
--- NOTE | 2020-09-06 09:45 | NUR ---
MORNING ROUTINE MEDICATIONS GIVEN. PATIENT AWAKE AND ALERT. IN BED TALKING TO HIMSELF. DENIED OF PAIN AT THIS TIME. RESP EVEN AND UNLABORED ON ROOM AIR. MAG OXIDE HELD D/T MAG LEVEL WNL. PATIENT ABLE TO MAKE NEEDS KNOWN. NO BEHAVIORAL PROBLEMS AT THIS TIME. SITTER AT BEDSIDE. WILL CONTINUE TO MONITOR.
[2020-09-06 10:04] LABS: MAGNESIUM 1.8 mg/dL (1.8-2.4); PHOSPHORUS 4.1 mg/dL (2.5-4.9)
--- NOTE | 2020-09-06 11:28 | NUR ---
PATIENT WALKED OUT OF HIS ROOM BUT WAS REDIRECTED BACK. PATIENT ABLE TO FOLLOW COMMAND. NO AGGRESSIVE BEHAVIORS OR OUTBURSTS NOTED. DENIED PAIN. SITTER BY BEDSIDE. WILL CONTINUE TO MONITOR.
--- NOTE | 2020-09-06 14:19 | NUR ---
PATIENT REQUESTED ADDITIONAL FOOD. SANDWICH WAS PROVIDED.
[2020-09-06 16:00] VITALS: BP 117/61
--- NOTE | 2020-09-06 17:20 | NUR ---
PATIENT SLEEPING IN BED, CHEST NOTED RISING. NO ACUTE S/S DISTRESS AT THIS TIME. SITTER BY BEDSIDE. WILL CONTINUE TO MONITOR.
--- NOTE | 2020-09-06 19:23 | NUR ---
ENDORSED PATIENT TO NIGHT NURSE. PATIENT IN STABLE CONDITION.
--- NOTE | 2020-09-06 19:24 | NUR ---
RECD. SLEEPING COMFORTABLY IN BED, RESPIRATION EVEN AND UNLABORED. NO IV LINE. STILL LOOKING UNKEMPT, DISHEVELED, STINKY. COLOR IN ACCORDANCE TO ETHNICITY. NO APPEARANCE OF PAIN NOTED 0/10. WILL CONTINUE TO MONITOR BEHAVIOR AND ENSURE SAFETY DURING THE SHIFT. NO APPEARANCE OF PAIN NOTED 0/10.
--- NOTE | 2020-09-06 19:24 | NUR ---
Patient's Plan of Care was discussed and reviewed with DIRECTOR OF COMMUNITY EDUCATION: ALEXANDER. SITTER AT BEDSIDE. WILL CONTINUE TO MONITOR.
--- NOTE | 2020-09-06 19:35 | NUR ---
WOKE UP AND GET OUT AIMLESSLY OUT OF THE ROOM, ASSISTED TO GO BACK AND DIRECTED TO BR. VOIDED AND WENT BACK TO SLEEP AFTER VOIDING.
--- NOTE | 2020-09-06 20:30 | NUR ---
WAKE UP, GET OUT OF BED AND WENT TO DOOR, SPOKE SOFT WORDS BUT MUMBLES. SINGS TO HIMSELF A FEW LINES OF A SONG. INSTRUCTED TO GO BACK TO BED, COOPERATIVE.
[2020-09-06] MEDS: traZODone 50 MG TAB PO SCH (20:46)
--- NOTE | 2020-09-06 21:05 | NUR ---
GET OUT OF BED AGAIN, WANTS TO WATCH TV, EXPLAINED THAT THE ROOM HAS NO TV. ADVISED OT GO BACK TO BED AND SLEEP.
--- NOTE | 2020-09-06 21:15 | NUR ---
GET OUT OF BED AND WENT OUT OF THE ROOM, DIRECTED TO GO BACK TO BED, COOPERATIVE.
--- NOTE | 2020-09-06 21:28 | NUR ---
GET OUT OF BED, REQUESTED FOR COFFEE BUT MILK GIVEN INSTEAD, BACK TO BED AFTER DRINKING MILK.
--- NOTE | 2020-09-06 22:15 | NUR ---
GET OUT OF BED AGAIN AND WALKED TO THE DOOR, ASSISTED TO BACK TO BED. ADVISED TO GO TO SLEEP.
--- NOTE | 2020-09-06 22:50 | NUR ---
GET OUT OF BED AND WALKED NEAR DOOR BUT WENT BACK TO BED WITHOUT BEING TOLD TO DO SO.
--- NOTE | 2020-09-06 23:50 | NUR ---
GET UP AND GET RED DONOVAN SNACK AND GO BACK TO BED AND EAT. AFTER FEW MINUTES FALL ASLEEP.
[2020-09-07] VITALS: BP 120/67
--- NOTE | 2020-09-07 00:15 | NUR ---
WENT OUT OF BED AND AMBULATED TO THE DOOR, DIRECTED TO GO BACK TO BED AN SLEEP, COOPERATIVE.
--- NOTE | 2020-09-07 00:25 | NUR ---
GET OUT OF THE ROOM EATING RED DONOVAN, WHEN DIRECTED TO GO BACK TO ROOM, GOT ANGRY, POINTED FINGER TO NURSE. WENT BACK TO ROOM AND LAY DOWN. CALL MD FOR A SLEEPING PILL.
[2020-09-07] MEDS ORDERED: ZOLPIDEM 5 MG TAB PO PRN (01:45)
--- NOTE | 2020-09-07 01:55 | NUR ---
GET OUT OF BED AGAIN, UNABLE TO SLEEP, MEDICATED WITH AMBIEN 5 MG PO.
--- NOTE | 2020-09-07 02:15 | NUR ---
GETS OUT OF BED, ANGRY SAYING INCOMPREHENSIBLE WORDS TO THE NURSES.
[2020-09-07] MEDS: HALOPERIDOL IM 5 MG/ML VIAL IM PRN (02:21)
--- NOTE | 2020-09-07 02:21 | NUR ---
WITH AGITATION, MEDICATED WITH HALDOL PER MD ORDER.
--- NOTE | 2020-09-07 03:00 | NUR ---
GET OUT OF BED AND WALKED IN THE HALLWAY, DOES NOT LISTENED TO NURSES TO GO BACK TO ROOM, SECURITY CALLED BUT AFTER FEW MINUTES WALKED BACK TO ROOM AND GOES TO BED.
--- NOTE | 2020-09-07 03:35 | NUR ---
WOKE UP AND GET OUT OF BED AND GO TO THE DOOR, MUMBLES WORDS. INSTRUCTED TO GO BACK TO BED AND SLEEP, OBEYED.
--- NOTE | 2020-09-07 03:35 | NUR ---
Call Center notified [facility] PATEL at this time there are no beds at any of the designated facilities [facility] will continue to make calls for placement.
--- NOTE | 2020-09-07 03:40 | NUR ---
WOKE UP AND TOOK OFF GOWN, WENT TO THE DOOR AND MUMBLE WORDS. INSTRUCTED TO GO BACK TO BED AND SLEEP. REQUESTED FOR PUDDING. SINGS AND WALKED INSIDE HIS ROOM.
[2020-09-07] MEDS: diphenhydrAMINE 50 MG/ML VIAL IM PRN (04:05)
--- NOTE | 2020-09-07 04:05 | NUR ---
AGITATED, MEDICATED WITH BENADRYL PER MD ORDER. SECURITY WATCHING NEAR BEDSIDE.
--- NOTE | 2020-09-07 04:10 | NUR ---
SLEEPING COMFORTABLY IN BED.
--- NOTE | 2020-09-07 04:20 | NUR ---
WOKE UP AND AMBULATED TO THE DOOR, JUICE GIVEN REQUESTED. WENT BACK TO SLEEP.
--- NOTE | 2020-09-07 05:00 | NUR ---
WENT OUT OF THE ROOM AND AMBULATED IN THE HALLWAY. DIRECTED TO GO BACK TO SLEEP.
--- NOTE | 2020-09-07 05:25 | NUR ---
GOES OUT OF THE ROOM AND DOES NOT LISTENED TO NURSES, WENT BACK TO ROOM AFTER FEW MINUTES, STILL DOES NOT GO TO BED TO SLEEP.
--- NOTE | 2020-09-07 05:45 | NUR ---
WENT TO BED AND MASTURBATED. RELAXED FOR A WHILE BUT DID NOT GO TO SLEEP.
--- NOTE | 2020-09-07 06:00 | NUR ---
COFFEE GIVEN REQUESTED WITH THE DEAL TO GO BACK TO BED. WENT BACK TO ROOM.
--- NOTE | 2020-09-07 06:20 | NUR ---
GOES OUT OF THE ROOM AND AMBULATED IN THE HALLWAY. AFTER A FEW MINUTES GOES BACK TO ROOM AND SITS ON THE BED.
--- NOTE | 2020-09-07 06:40 | NUR ---
WENT TO BED AND SLEEP.
--- NOTE | 2020-09-07 06:50 | NUR ---
AWAKE, WENT OUT OF BED AND OBIEE CONSULTANT THE DOORWAY, INSTRUCTED TO STAY INSIDE THE ROOM. CONDITION REMAIN STABLE. UNABLE TO SLEEP EVEN WITH MEDICATIONS GIVEN. SAFERTY MAINTAINED DURING SHIFT. NEW SITTER MONITORING PATIENT NEAR DOOR.
--- NOTE | 2020-09-07 06:56 | NUR ---
BERTHA FROM [facility] CALLED AND SAID STILL BED IS NOT AVAILABLE IN PSYCH FACILITY.
--- NOTE | 2020-09-07 07:10 | NUR ---
SLEEPING COMFORTABLY IN BED. ENDORSED TO AM SHIFT NURSE FOR CONTINUITY OF CARE.
--- NOTE | 2020-09-07 07:11 | NUR ---
RECEIVED REPORT FROM HISTOPATHOLOGY TECHNICIAN NURSE RACHEAL. PT RESTING IN BED, AOX1, ON ROOM AIR AND REFUSING IV SITE. DISCUSSED PLAN OF CARE HOWEVER PT DID NOT VERBALIZE UNDERSTANDING. 1:1 SITTER. NO S/S OF RESPIRATORY DISTRESS OR DISCOMFORT NOTED AT THIS TIME. WILL CONTINUE TO MONITOR.
[2020-09-07] MEDS: DIVALPROEX 250 MG TABEC PO SCH ×2 (08:14→20:33)
[2020-09-07] MEDS: OLANZapine 5 MG TAB PO SCH ×2 (08:14→20:33)
--- NOTE | 2020-09-07 08:14 | NUR ---
SCHEDULED MEDICATIONS GIVEN AND TOLERATED WELL. 1:1 SITTER. NO S/S OF RESPIRATORY DISTRESS OR DISCOMFORT NOTED AT THIS TIME. WILL CONTINUE TO MONITOR.
[2020-09-07] MEDS: MAGNESIUM OXIDE 400 MG TAB PO SCH (08:16)
--- NOTE | 2020-09-07 10:00 | NUR ---
PT SLEEPING IN BED. 1:1 SITTER. NO S/S OF RESPIRATORY DISTRESS OR DISCOMFORT NOTED AT THIS TIME. WILL CONTINUE TO MONITOR.
--- NOTE | 2020-09-07 12:00 | NUR ---
PT PACING BEDROOM. 1:1 SITTER. NO S/S OF RESPIRATORY DISTRESS OR DISCOMFORT NOTED AT THIS TIME. WILL CONTINUE TO MONITOR.
--- NOTE | 2020-09-07 14:00 | NUR ---
PT PACING ROOM AND YELLING. 1:1 SITTER. NO S/S OF RESPIRATORY DISTRESS OR DISCOMFORT NOTED AT THIS TIME. WILL CONTINUE TO MONITOR.
--- NOTE | 2020-09-07 16:00 | NUR ---
PT SLEEPING IN BED. 1:1 SITTER. NO S/S OF RESPIRATORY DISTRESS OR DISCOMFORT NOTED AT THIS TIME. WILL CONTINUE TO MONITOR.
--- NOTE | 2020-09-07 18:00 | NUR ---
PT RESTING IN BED. 1:1 SITTER. NO S/S OF RESPIRATORY DISTRESS OR DISCOMFORT NOTED AT THIS TIME. WILL CONTINUE TO MONITOR.
--- NOTE | 2020-09-07 19:00 | NUR ---
RECEIVED PT AAOX3 TO 4 , NID - O2 SAT WNL - NO IV ACCESS . RESTING ON BED APPEARS CALM AND COMFORTABLY . - - HOLD - ON 1:1 SITTER . SW STILL LOOKING FOR AVAILABLE BED FOR THE PT - IN IN HOUSE PSYCHE FACILITY. SAFETY MEASURES IN PLACE WILL CONT. TO MONITOR .
--- NOTE | 2020-09-07 19:00 | NUR ---
ENDORSED TO FOUNDRY PROCESS ENGINEER NURSE DINO-JORGE FOR CONTINUITY OF CARE. PT STABLE AT THIS TIME.
[2020-09-07] MEDS: traZODone 50 MG TAB PO SCH (20:33)
--- NOTE | 2020-09-07 22:00 | NUR ---
STANDING IN THE FRONT OF THE DOOR - INSTRUCT PT TO GO BACK TO HIS BED - HE REQUESTING SOMETHING TO EAT - WILL GIVE SANDWICH . Addendum: 09/08/20 at 4320 by Ashleigh Neely RN ON 1:1 JOSY .
--- NOTE | 2020-09-08 | NUR ---
WALKS BACK AN FORTH ISIDE THE ROOM , UP AND DOWN IN THE BED - WILL CONT. TO MONITOR . ON 1: 1 SITTER .
--- NOTE | 2020-09-08 01:07 | NUR ---
HALDOL + BENADRYL SHOT GIVEN THRU IM - ORDERED - ON 1:1 SITTER - FOR DARSHANA WATCH . Addendum: 09/08/20 at 1824 by Ashleigh Neely RN THE TIME OF THE ABOVE NURSE'S NOTES IS AN ERROR ENTRY , INSTEAD OF 0117 - SURY
--- NOTE | 2020-09-08 01:10 | NUR ---
PT. SHOUTING VERY LOUD , SEEMS ANGER IN VOICE INTONATION - HIS BEHAVIOUR IS UNCONTROLABLE REFUSE TO GO BACK TO HIS BED AND TENDS TO BE SEEK AN ARGUMENT . ON 1:1 SITTER - CALL FORMS ANALYSIS MANAGER - INTERLINE CLERK IS THE [address] - FOR CLOSELY WATCH .
[2020-09-08] MEDS: diphenhydrAMINE 50 MG/ML VIAL IM PRN ×2 (01:17→22:47)
[2020-09-08] MEDS: HALOPERIDOL IM 5 MG/ML VIAL IM PRN ×2 (01:17→22:47)
--- NOTE | 2020-09-08 02:00 | NUR ---
STILL AWAKE - LYING ON BED - APPEARS CALM AT THIS TIME . ON 1:1 SITTER . WILL CONT. TO MONITOR.
--- NOTE | 2020-09-08 04:00 | NUR ---
MADE ROUNDS , APPEARS CALM - RESTING ON BED - ON 1:1 SITTER , WILL CONT. TO MONITOR.
--- NOTE | 2020-09-08 06:00 | NUR ---
MADE ROUNDS , RESTING ON BED . ON 1 : 1 SITTER
[2020-09-08 06:04] LABS: BASOPHILS # (AUTO) 0.1 K/uL (0.00-0.22); BASOPHILS % (AUTO) 0.6 % (0.0-2.0); EOSINOPHILS # (AUTO) 0.6 K/uL (0-0.4); HEMATOCRIT 37.4 % (36-52); HEMOGLOBIN 12.3 g/dL (12.0-18.0); LYMPHOCYTES % (AUTO) 18.8 % (20.5-51.1); MEAN CORPUSCULAR HEMOGLOBIN 24 pg (27-31); MEAN CORPUSCULAR HGB CONC 33 g/dL (33-37); MEAN CORPUSCULAR VOLUME 73.8 fL (80-94); MONOCYTES # (AUTO) 1.1 K/uL (0.8-1.0); MONOCYTES % (AUTO) 10.1 % (1.7-9.3); NEUTROPHILS % (AUTO) 64.5 % (42.2-75.2); PLATELET COUNT (AUTO) 351 K/uL (140-450); RED BLOOD CELL COUNT(AUTO) 5.06 MIL/uL (4.20-6.10); WHITE BLOOD COUNT (AUTO) 10.8 K/uL (4.8-10.8)
[2020-09-08 06:24] LABS: ANION GAP 14.2 (8-16); CARBON DIOXIDE 29.7 mmol/L (21-32); CREATININE 0.8 mg/dL (0.6-1.3); POTASSIUM 4.9 mmol/L (3.5-5.1)
[2020-09-08 06:31] LABS: MAGNESIUM 1.9 mg/dL (1.8-2.4); PHOSPHORUS 4.6 mg/dL (2.5-4.9)
--- NOTE | 2020-09-08 07:22 | NUR ---
RECEIVED REPORT FROM GLOVE TURNER AND FORMER RN FOR CONTINUITY OF CARE. PATIENT IS AWAKE, ALERT AND CALM AT THIS TIME. STANDING IN ROOM. 1:1 SITTER. AMBULATORY. NO ACUTE DISTRESS NOTED AT THIS TIME. SAFETY MEASURES IN PLACE, WILL CONTINUE TO MONITOR.
--- NOTE | 2020-09-08 07:22 | NUR ---
ENDORSED TO AM SHIFT - PT - STABLE . Addendum: 09/08/20 at 1818 by Ashleigh Neely RN ON 1:1 JOSY
--- NOTE | 2020-09-08 08:54 | NUR ---
PATIENT RESTING IN BED. REFUSED TO TAKE MORNING MEDICATIONS. PER DEVELOPMENT MANAGER, PATIENT REFUSED TO TAKE MORNING VITAL SIGNS EITHER. NOT COOPERATIVE. 1:1 SITTER. WILL CONTINUE TO MONITOR.
[2020-09-08] MEDS ORDERED: MAGNESIUM OXIDE 400 MG TAB PO PRN (09:00)
--- NOTE | 2020-09-08 09:40 | NUR ---
PATIENT ASLEEP. OFFERED MEDICATIONS. PATIENT REFUSED. KEEP SAYING: "GO AWAY". 1:1 SITTER. WILL CONTINUE TO MONITOR.
[2020-09-08] MEDS: DIVALPROEX 250 MG TABEC PO SCH ×2 (09:55→21:04)
[2020-09-08] MEDS: OLANZapine 5 MG TAB PO SCH ×2 (09:55→21:04)
--- NOTE | 2020-09-08 09:55 | NUR ---
PATIENT REFUSED TO TAKE MORNING MEDICATIONS. MADE AWARE.
--- NOTE | 2020-09-08 11:05 | NUR ---
PATIENT SLEEPING IN BED WITH RIGHT LATERAL POSITION. 1:1 SITTER. NO ACUTE DISTRESS NOTED, WILL CONTINUE TO MONITOR.
--- NOTE | 2020-09-08 13:02 | NUR ---
PATIENT RESTING IN BED, NO ACUTE DISTRESS NOTED, 1:1 SITTER. WILL CONTINUE TO MONITOR.
--- NOTE | 2020-09-08 17:11 | NUR ---
PATIENT AWAKE, RESTING IN BED, NO ACUTE DISTRESS NOTED, 1:1 SITTER. WILL CONTINUE TO MONITOR.
--- NOTE | 2020-09-08 18:36 | NUR ---
Received report from day shift and is aware of patient. After reviewing patients chart, patients 5150 hold has . Hold was renewed 09/05 @ 1415 and 09/08 @ 1415. Call Center will monitor notes and await re evaluation for disposition.
--- NOTE | 2020-09-08 19:35 | NUR ---
ENDORSED PATIENT TO DIE MAKER APPRENTICE RN FOR CONTINUITY OF CARE.
--- NOTE | 2020-09-08 19:35 | NUR ---
RECEIVED PT AAOX3 TO 4 , NID - O2 SAT WNL - REFUSED V/S PER AM NURSE . NO IV ACCESS . STILL CONT. 5150 HOLD ORDERED , ON 1; 1 SITTER . SW STILL LOOKING AVAILABLE BED IN IN PSYCHE FACILITY FOR THE PT . PLAN OF CARE DISCUSSED BUT POOR UNDERSTANDING DUE TO MENTAL STATUS . SAFETY MEASURES IN PLACE . WILL CONT. TO MONITOR .
[2020-09-08] MEDS: traZODone 50 MG TAB PO SCH (21:04)
--- NOTE | 2020-09-08 22:40 | NUR ---
STANDING IN THE FRONT OF THE DOOR , KEEP SHOUTING . REFUSE TO GO BACK TO BACK . SEEMS ANGER IN VOICE INTONATION - WILL MEDICATE W/ HALDOL + BENADRYL ORDERED . Addendum: 09/09/20 at 0343 by Ashleigh Neely RN ON 1;1 SITTER . MEAT PASSER IS IN THE [address] .
--- NOTE | 2020-09-08 22:47 | NUR ---
HALDOL + BENADRYL ANTHONY GIVEN FOR AGITATION ORDERED - WILL CONTINUE TO MONITOR . ON 1:1 SITTER .
--- NOTE | 2020-09-09 | NUR ---
RESTING ON BED - APPEARS CALM AT THIS TIME . ON 1 : 1 SITTER . WILL CONT. TO MONITOR .
--- NOTE | 2020-09-09 02:00 | NUR ---
SLEEPING - CHEST RISE AND FALL EQUALLY - ON 1 :1 SITTER , WILL CONT. TO MONITOR .
[2020-09-09 06:13] LABS: BASOPHILS # (AUTO) 0.1 K/uL (0.00-0.22); BASOPHILS % (AUTO) 0.5 % (0.0-2.0); EOSINOPHILS # (AUTO) 0.6 K/uL (0-0.4); EOSINOPHILS % (AUTO) 5.6 % (0.0-4.0); HEMATOCRIT 34.7 % (36-52); HEMOGLOBIN 11.6 g/dL (12.0-18.0); LYMPHOCYTES % (AUTO) 19.7 % (20.5-51.1); MEAN CORPUSCULAR HEMOGLOBIN 25 pg (27-31); MEAN CORPUSCULAR HGB CONC 34 g/dL (33-37); MEAN CORPUSCULAR VOLUME 73.6 fL (80-94); MONOCYTES # (AUTO) 1.3 K/uL (0.8-1.0); MONOCYTES % (AUTO) 12.5 % (1.7-9.3); NEUTROPHILS # (AUTO) 6.2 K/uL (1.8-7.7); NEUTROPHILS % (AUTO) 61.7 % (42.2-75.2); PLATELET COUNT (AUTO) 323 K/uL (140-450); RED BLOOD CELL COUNT(AUTO) 4.72 MIL/uL (4.20-6.10)
[2020-09-09 06:28] LABS: ANION GAP 13.2 (8-16); CREATININE 0.8 mg/dL (0.6-1.3); POTASSIUM 4.2 mmol/L (3.5-5.1)
[2020-09-09 06:32] LABS: MAGNESIUM 2.1 mg/dL (1.8-2.4); PHOSPHORUS 4.1 mg/dL (2.5-4.9)
--- NOTE | 2020-09-09 07:05 | NUR ---
RECEIVED REPORT FROM [employer] PIPING DESIGNER RN FOR CONTINUITY OF CARE. PATIENT ASLEEP IN BED. NO S/S OF PAIN, RESPIRATIONS ARE EVEN AND UNLABORED. NO ACUTE DISTRESS NOTED AT THIS TIME. 1:1 SITTER. SAFETY MEASURES IN PLACE, WILL CONTINUE TO MONITOR.
[2020-09-09] MEDS ORDERED: MAGNESIUM OXIDE 400 MG TAB PO PRN (07:15)
--- NOTE | 2020-09-09 07:43 | NUR ---
Received report. [facility] aware patient's 5150 hold has .
--- NOTE | 2020-09-09 08:55 | NUR ---
DUE MORNING MEDS GIVEN. TOLERATED PO MEDS WELL
[2020-09-09] MEDS: DIVALPROEX 250 MG TABEC PO SCH (09:45)
[2020-09-09] MEDS: OLANZapine 5 MG TAB PO SCH (09:46)
--- NOTE | 2020-09-09 10:23 | NUR ---
Received new 5150 hold. Will continue with placement.
--- NOTE | 2020-09-09 11:08 | NUR ---
Packet with new hold referred to: Juan Carlos Coto [facility]
--- NOTE | 2020-09-09 11:15 | NUR ---
PT ASLEEP IN BED. NO APPARENT DISTRESS
--- NOTE | 2020-09-09 13:08 | NUR ---
PT ASLEEP IN BED. FLACC 0, NO SOB, NO S/S OF DISTRESS
--- NOTE | 2020-09-09 14:56 | NUR ---
DISCHARGE PLANNING: RECEIVED A CALL FROM MARK [phone] OF [facility], INQUIRING IS WE ARE STILL SEEKING PLACEMENT FOR THIS PATIENT. INFORMED HER THAT WE STILL DO. SHE REQUESTED TO SEND CURRENT HOLD TO [phone] AND IF RECEIVED THEY CAN PROVIDE US WITH BED. WILL SEND COPY OF [id number] HOLD. Addendum: 09/09/20 at 1506 by Shweta Meadows CM ART OF [facility] MADE AWARE. Addendum: 09/09/20 at 1550 by Gia Kebede STEWART TENORIO: SPOKE TO MONICA AT [facility]. PATIENT WILL BE GOING TO THE MAIN CAMPUS UNIT C ROOM [address]A UNDER [address] [place]. NUMBER FOR REPORT [phone]. Addendum: 09/09/20 at 1600 by Gia Kebede CM STEWART HEAD ANIMAL KEEPER: SET UP TRANSPORTATION WITH [facility]. TRANSPORTATION TIME IS 5:30 PM. CHARGE NURSE [place] NOTIFIED.
[2020-09-09] MEDS ORDERED: OLAN20TA1 PO (16:20)
[2020-09-09] MEDS ORDERED: DIVA250E1 PO (16:20)
--- NOTE | 2020-09-09 17:00 | NUR ---
GAVE REPORT TO GABRIELA IN [facility].
--- NOTE | 2020-09-09 17:45 | NUR ---
PT PICKED UP BY [facility] TO BE TRANSFERRED TO [facility] IN [place]. STABLE UPON DISCHARGE
== END 2020-09-09 17:47 | DRG 812 ==
LOC: MED 08:54 → MTU 16:35
PROVIDERS: ADMIT Emergency Medicine; ATTEND Emergency Medicine
DX: T43.621A Poisoning by amphetamines, accidental (unintentional), initial encounter (principal); G92 Toxic encephalopathy; Z20.828 Contact with and (suspected) exposure to other viral communicable diseases; F29 Unspecified psychosis not due to a substance or known physiological condition; E83.42 Hypomagnesemia; Y92.89 Other specified places as the place of occurrence of the external cause
CPT/HCPCS: 36415; 80048; 80053; 80305; 83036; 83690; 83735; 83880; 84100; 84436; 84439; 84443; 84479; 85025; 85610; 85730; 87081; 93005; 96361; 96372; 96374; 99285; G0480; G0482; J1200; J1630; J2060